=== PATIENT | male | born 1955 | race Caucasian/White ===

== ENCOUNTER 2023-03-18 11:46 | Emergency (ER) | payer MEDICARE, OTHER, SELFPAY ==
[2023-03-18 11:48] VITALS: BP 197/98
--- NOTE | 2023-03-18 12:33 | ED.GENMED ---
History of Present Illness
General
Chief Complaint: Abdominal Pain
Source: patient
Exam Limitations: none
Time Seen by Provider: 03/18/23 12:19
Nursing documentation reviewed up to this point in time: agreed with
Travel History
Have you had any contact with someone who has COVID-19?: No
Do you have any symptoms of coronavirus? Fever > 100 degrees, chills, cough, shortness of breath, sore throat, loss of taste or smell, muscle aches, or headache?: No
History of Present Illness
History of Present Illness:
Patient is 67-year-old male with history hypertension presenting for evaluation of left lower quadrant abdominal pain. Symptoms started on with abdominal pain that has been worsening. He also endorses some episodes of diarrhea and
associated nausea. Pain is worse with movement. He denies any fever, chills, chest pain, shortness of breath, urinary symptoms. No blood in his stool or hematuria.
He was seen in urgent care this morning who recommended he come to emergency department for further evaluation. His blood pressure was elevated in the urgent care. He denies any headache, weakness, numbness, back pain, visual changes. He was
started on lisinopril about a year ago but stopped after about 1 month due to a cough. He was trying to make lifestyle adjustments.
Patient has history of presumed diverticulitis in the past and been treated outpatient with antibiotics. He has not had CT confirmation in the past.
He had an appendectomy over 30 years ago.
Past History
Social History
Tobacco: Non-smoker
Living: with family
Employment: Employed
Family History
Family History: Negative Early CAD or CAD
Phy Exam
Physical Exam
Physical Exam:
General: Well appearing and non-toxic, vital signs reviewed patient afebrile
HEENT: Atraumatic, normocephalic; pupils equal react light bilaterally, extract muscle intact, protecting airway
Neck: appears supple, no jugular venous distention
CV: Regular rate and rhythm, heart sounds normal, no evidence of cyanosis
Resp: No evidence of respiratory stress, lungs clear, no accessory muscle use
Abd: Soft, moderately tender in left lower quadrant without rebound or guarding, non-distended; no CVA tenderness
Extremities: No deformities, no evidence of cyanosis or edema
Neuro: alert and oriented to person place time, speech normal, no focal neurologic deficits, no focal motor
Psych: Normal affect
Skin: Intact, no rashes
Course
Orders/Labs/Results
Orders:
Orders
03/18/23 12:34
0.9% Sodium Chloride 1000 ml [Nss] 1,000 ml IV BOLUS
Ketorolac [Toradol] 15 mg IV NOW STA
03/18/23 12:36
CT Abd/Pel (IV only)-DH only Urgent
Comment: hx appendectomy > 30 yrs ago
Reason For Exam: LLQ abdominal pain
03/18/23 13:27
Complete Blood Count/With Diff Urgent
Comprehensive Metabolic Panel Urgent
Lipase Urgent
03/18/23 13:54
STOOL [C difficile Antigen & Toxins] Urgent
JOHN Source: Feces/Stool
Specimen Description:
Date Specimen was Collected: 03/18/23
Time Specimen was Collected: 13:51
Stool Culture Urgent
OJHN Source: Feces/Stool
Specimen Description:
Date Specimen was Collected: 03/18/23
Time Specimen was Collected: 13:50
Abnormal Lab Results
03/18/23
13:27
RBC 4.35 L 10^6/uL
(4.70-6.10)
MCV 97.0 H fL
(80.0-94.0)
MCH 33.6 H pg
(27.0-31.0)
Absolute Neuts (auto) 7.0 H 10^3/uL
(1.4-6.5)
Absolute Monos (auto) 1.1 H 10^3/uL
(0.1-0.6)
Lymphocytes % 16.1 L %
(20.5-51.1)
Monocytes % 11.5 H %
(1.7-9.3)
Glucose 111 H mg/dl
(70-99)
03/18/23 13:27
03/18/23 13:27
Vital Signs
Initial and Last Documented VS:
Initial Vital Signs
Temp Pulse Resp BP Pulse Ox
98.3 F 69 16 197/98 99
03/18/23 11:48 03/18/23 11:48 03/18/23 11:48 03/18/23 11:48 03/18/23 11:48
Last Documented Vital Signs
Temp Pulse Resp BP Pulse Ox
98.3 F 69 16 170/87 99
03/18/23 11:48 03/18/23 11:48 03/18/23 11:48 03/18/23 14:00 03/18/23 11:48
MDM/Problems Addressed
Differential Diagnosis Includes:
Diverticulitis, colitis, nephrolithiasis, UTI, muscle strain
MDM/Problems Addressed:
Patient is a 67 year old male w/ hx hypertension presenting for evaluation of left sided abdominal pain worsening over the past 2 days. Some associated nausea and intermittent diarrhea. No chest pain, shortness of breath, urinary symptoms. Patient
with hx appendectomy > 30 years ago. He endorse a few presumed diverticulitis flares in past treated with outpatient abx without CT confirmation. Patient well appearing on exam and mild to moderate distress due to pain. His vital signs are stable
other than hypertension�he is afebrile. Physical exam as documented above. He is moderately tender in left lower quadrant without rebound or guarding. No CVA tenderness. Will get basic labs, lipase. Will get CT of abdomen. Will start IV
fluids. Patient declines Toradol at this time. Suspect this is likely a diverticulitis flare. Will reassess
CBC without any clinically significant abnormalities. White count is in normal range. CMP without any clinically significant abnormalities. Lipase is within normal range. Patient's pain remained stable at this time. CT pending.
CT scan shows findings of severe acute diverticulitis with a developing 1.8 cm intramural abscess. There is no evidence for obstruction or perforation. Given patient is very well-appearing, afebrile, with a normal white count�will speak with
colorectal surgeon regarding disposition admission versus outpatient management.
Spoke with Dr. Kamara with colorectal surgery�he recommended offering both admission versus outpatient management patient as abscess is not indication for admission. Lengthy discussion with patient regarding discharge versus admission. He prefers
outpatient management with oral antibiotics. He will follow-up with Dr. Kamara in office and have colonoscopy once resolved. He has remained well-appearing in emergency department and hemodynamically stable. He has remained significantly
hypertensive emergency department�though asymptomatic. He endorses trial of lisinopril about a year ago with primary care provider but developed cough. Given persistent elevation in blood pressure will discharge with 30 supply of losartan. He
will follow with primary care for further management. He is stable for discharge with close return precautions, Augmentin outpatient, follow-up with colorectal. Patient is comfortable with this plan. All questions answered.
Chronic conditions affecting care:
Hypertension, diverticulosis
Acute Exacerbation and/or Progression of Chronic Illness:
Acute diverticulitis, asymptomatic hypertension
*Radiology
Radiology exam reviewed: preliminary read by ED provider and radiology read reviewed
*Pulse Oximetry
Patient hypoxic: no
*Waiter Waitress Interpretation
Rate: normal
Interpretation: normal
Heart Rate: 80
Rhythm: sinus
*Critical Care Note
Total Time (30-74mins, 75-104mins- exclusive of procedures): Not Applicable
ED Attending Note
-
Portions of this chart may have been created with voice recognition software.� Occasional wrong word or��sound alike� substitutions may have occurred due to the inherent limitations of voice recognition software.
Discharge Plan
Departure
Patient Disposition: Home (Routine Discharge)
Date of Disposition: 03/18/23
Time of Disposition: 15:31
Patient with high blood pressure during this ER visit?: Yes
Condition: Good
Covid-19: Not Applicable
Discharge Problem:
Acute diverticulitis, Asymptomatic hypertension
Instructions: Diverticulitis (DC), High Blood Pressure (DC), BLOOD PRESSURE
Prescriptions:
New
amoxicillin-pot clavulanate 875-125 mg tablet
1 tab PO BID 10 Days Qty: 20 0RF
losartan 25 mg tablet
25 mg PO DAILY Qty: 30 0RF
No Action
No Current Medications
Referrals:
Medardo Kamara MD [Active] - Follow up in 1 week
Ismael Schwab MD [Family Provider] - Follow up in 1 week
Activity Restrictions/Additional Instructions:
-Return to the emergency department with any high fevers, severe abdominal pain, intractable vomiting, chest pain, shortness of breath, significant worsening in current symptoms, or any other concerns
-Your prescriptions has been sent to your pharmacy for antibiotic.
-Recommend bland diet and advance as tolerated. You can take Advil as needed for discomfort.
-As discussed, you should schedule follow-up appointment with a colorectal specialist. You will need a colonoscopy once this acute episode is resolved.
-As discussed, your blood pressure was elevated while in the emergency department today. Return to the emergency department for severe headache, weakness, numbness, severe back pain, visual changes, chest pain, or shortness of breath. A
prescription has been sent for losartan for a 1 month supply. You should follow-up with your primary care provider for further evaluation/manage high blood pressure.
Interventions
Interventions:
*Risk Screen - Suicide Last Done: 03/18/23 11:48
*General Assessment Last Done: 03/18/23 11:48
*Neglect/Abuse Screening Last Done: 03/18/23 11:48
*ED COVID-19 Vaccine History Last Done: 03/18/23 13:15
*Nursing Disposition Last Done: 03/18/23 15:57
VV-Avjebj-Dsogxkiuqw Assessment Last Done: 03/18/23 13:15
Discharge Date and Time
Discharge Date/Time: 03/18/23 15:57
[2023-03-18 13:15] VITALS: BMI 31.2
[2023-03-18 13:25] VITALS: BP 175/95
[2023-03-18] MEDS: NSS 1000 IV (13:26)
[2023-03-18 13:37] VITALS: BP 182/102
[2023-03-18 13:37] LABS: % Basophils 0.4 % (0-2); % Eosinophils 1.3 % (0-6); % Immature Granulocytes 0.3 % (0-0.5); % Lymphocytes 16.1 % (20.5-51.1); % Monocytes 11.5 % (1.7-9.3); % Neutrophils 70.4 % (42.2-75.2); Absolute Eosinophils 0.1 10^3/uL (0-0.7); Absolute Lymphocytes 1.6 10^3/uL (1.2-3.4); Absolute Monocytes 1.1 10^3/uL (0.1-0.6); Hematocrit 42.2 % (39.0-52.0); Hemoglobin 14.6 g/dL (13.0-18.0); Mean Corp Hgb Conc. 34.6 g/dL (33.0-37.0); Mean Corpuscular Hgb 33.6 pg (27.0-31.0); Mean Platelet Volume 9.1 fL (7.4-10.4); Nucleated Red Blood Cells % 0 % (-); Platelet Count 229 10^3/uL (130-400); Red Blood Cell Count 4.35 10^6/uL (4.70-6.10); Red Cell Dist. Width 12.1 % (11.5-14.5); White Blood Cell Count 9.9 10^3/uL (4.8-10.8)
[2023-03-18 13:47] LABS: ALT (SGPT) 24 U/L (0-50); AST (SGOT) 26 U/L (17-59); Albumin 4.4 g/dl (3.5-5.0); Alkaline Phosphatase 85 U/L (38-126); Blood Urea Nitrogen 13 mg/dl (9-20); Calcium 9.3 mg/dl (8.4-10.2); Carbon Dioxide 28 mmol/L (22-30); Chloride 104 mmol/L (98-107); Estimated Creatinine Clearance 99 ml/min; Glucose 111 mg/dl (70-99); Lipase 59 U/L (23-300); Potassium 4.3 mmol/L (3.5-5.1); Sodium 137 mmol/L (135-145); Total Bilirubin 1.3 mg/dl (0.2-1.3); Total Protein 7.6 g/dl (6.3-8.2); eGFR > 60.00
[2023-03-18 14:00] VITALS: BP 170/87
== END 2023-03-18 15:57 | disposition home or self-care (01) ==
LOC: EMR 11:46
PROVIDERS: Physician Assistant; EMERGENCY PHYSICIAN Emergency Medicine; FAMILY PHYSICIAN Internal Medicine
DX: K57.20 Diverticulitis of large intestine with perforation and abscess without bleeding (principal); I10 Essential (primary) hypertension
CPT/HCPCS: 99285; 96361; 96360; 74177; 80053; 83690; 85025; 87045; 87046; 87324; 87427; 87449; Q9967

== ENCOUNTER → 2023-05-08 12:40 | Outpatient (REF) | payer MEDICARE, OTHER, SELFPAY ==
[2023-05-08 14:10] LABS: % Basophils 0.8 % (0-2); % Eosinophils 2.4 % (0-6); % Immature Granulocytes 0.5 % (0-0.5); % Lymphocytes 23.8 % (20.5-51.1); % Monocytes 8.6 % (1.7-9.3); % Neutrophils 63.9 % (42.2-75.2); Absolute Basophils 0.1 10^3/uL (0-0.2); Absolute Eosinophils 0.2 10^3/uL (0-0.7); Absolute Lymphocytes 1.6 10^3/uL (1.2-3.4); Absolute Monocytes 0.6 10^3/uL (0.1-0.6); Absolute Neutrophils 4.2 10^3/uL (1.4-6.5); Hematocrit 43.3 % (39.0-52.0); Hemoglobin 14.4 g/dL (13.0-18.0); Mean Corp Hgb Conc. 33.3 g/dL (33.0-37.0); Mean Corpuscular Hgb 33.1 pg (27.0-31.0); Mean Corpuscular Volume 99.5 fL (80.0-94.0); Mean Platelet Volume 10.2 fL (7.4-10.4); Nucleated Red Blood Cells % 0 % (-); Platelet Count 247 10^3/uL (130-400); Red Blood Cell Count 4.35 10^6/uL (4.70-6.10); Red Cell Dist. Width 12.6 % (11.5-14.5); White Blood Cell Count 6.6 10^3/uL (4.8-10.8)
[2023-05-08 15:36] LABS: ALT (SGPT) 32 U/L (0-50); AST (SGOT) 40 U/L (17-59); Albumin 4.7 g/dl (3.5-5.0); Alkaline Phosphatase 92 U/L (38-126); Blood Urea Nitrogen 19 mg/dl (9-20); Calcium 9.8 mg/dl (8.4-10.2); Carbon Dioxide 25 mmol/L (22-30); Chloride 107 mmol/L (98-107); Glucose 98 mg/dl (70-99); HDL Cholesterol 84 mg/dl; LDL Cholesterol, Calculated 149 mg/dl; Potassium 4.7 mmol/L (3.5-5.1); Sodium 139 mmol/L (135-145); Total Bilirubin 0.8 mg/dl (0.2-1.3); Total Cholesterol 244 mg/dl (50-199); Total Protein 7.7 g/dl (6.3-8.2); Triglyceride 57 mg/dl (10-149); Very Low Density Lipoprotein 11 mg/dl (0-30); eGFR > 60.00
== END ==
LOC: REG 12:40
PROVIDERS: ATTENDING PHYSICIAN Internal Medicine
DX: K57.92 Diverticulitis of intestine, part unspecified, without perforation or abscess without bleeding (principal); I10 Essential (primary) hypertension
CPT/HCPCS: 36415; 80053; 80061; 85025

== ENCOUNTER → 2023-05-15 15:27 | Outpatient (REF) | payer MEDICARE, OTHER, SELFPAY | LOC: RAD 15:27 | PROVIDERS: ATTENDING PHYSICIAN Internal Medicine | DX: K57.91 Diverticulosis of intestine, part unspecified, without perforation or abscess with bleeding (principal); I10 Essential (primary) hypertension | CPT/HCPCS: 74177; Q9967 ==

== ENCOUNTER 2023-05-31 15:54 | Emergency (ER) | payer MEDICARE, OTHER, SELFPAY ==
[2023-05-31] VITALS (9 sets, daily range): BP systolic 145–209; BP diastolic 86–106
[2023-05-31 16:17] LABS: % Basophils 0.6 % (0-2); % Immature Granulocytes 0.1 % (0-0.5); % Monocytes 12.3 % (1.7-9.3); Absolute Basophils 0.1 10^3/uL (0-0.2); Absolute Eosinophils 0.2 10^3/uL (0-0.7); Absolute Lymphocytes 1.7 10^3/uL (1.2-3.4); Absolute Monocytes 1.1 10^3/uL (0.1-0.6); Absolute Neutrophils 5.9 10^3/uL (1.4-6.5); Hematocrit 41.7 % (39.0-52.0); Mean Corp Hgb Conc. 33.6 g/dL (33.0-37.0); Mean Corpuscular Volume 98.3 fL (80.0-94.0); Mean Platelet Volume 9.2 fL (7.4-10.4); Nucleated Red Blood Cells % 0 % (-); Platelet Count 246 10^3/uL (130-400); Red Blood Cell Count 4.24 10^6/uL (4.70-6.10); Red Cell Dist. Width 12.5 % (11.5-14.5); White Blood Cell Count 8.9 10^3/uL (4.8-10.8)
[2023-05-31 16:32] LABS: ALT (SGPT) 25 U/L (0-50); AST (SGOT) 31 U/L (17-59); Albumin 4.6 g/dl (3.5-5.0); Alkaline Phosphatase 72 U/L (38-126); Blood Urea Nitrogen 20 mg/dl (9-20); Calcium 9.6 mg/dl (8.4-10.2); Carbon Dioxide 28 mmol/L (22-30); Chloride 104 mmol/L (98-107); Glucose 108 mg/dl (70-99); Potassium 4.5 mmol/L (3.5-5.1); Sodium 136 mmol/L (135-145); Total Protein 7.6 g/dl (6.3-8.2); eGFR > 60.00
[2023-05-31 16:53] LABS: Troponin I < 0.012 ng/ml
--- NOTE | 2023-05-31 17:23 | ED.GENMED ---
History of Present Illness
General
Chief Complaint: Chest Pain
Source: patient
Exam Limitations: none
Time Seen by Provider: 05/31/23 16:59
Travel History
Have you had any contact with someone who has COVID-19?: No
Do you have any symptoms of coronavirus? Fever > 100 degrees, chills, cough, shortness of breath, sore throat, loss of taste or smell, muscle aches, or headache?: No
History of Present Illness
History of Present Illness:
68-year-old male with history of hypertension presents with the onset of chest pain today at 1 PM while sitting at his desk. He describes the pain as a sharp pain when he takes a deep breath. He denies shortness of breath nausea or vomiting. He
has been coughing quite a bit. He denies hemoptysis. No recent travel or surgery. No leg swelling or calf pain. No prior cardiac disease. He denies shortness of breath. He states he went to the [facility] yesterday and today without any difficulty.
Pain does not radiate to his back or neck. No other complaints.
Past History
Social History
Tobacco: Non-smoker
Living: with family
Employment: Employed
Family History
Family History: Negative Early CAD or CAD
Phy Exam
Physical Exam
Physical Exam:
General: Well-appearing male no acute respiratory distress
HEENT: Normocephalic atraumatic
Heart: Regular rate and rhythm no murmur
Lungs: Clear to patient bilaterally no wheezing
Extremities: No cyanosis or edema calves nontender
skin: warm, no rashes.
Scores
Heart Score for Chest Pain Patients
STEMI patient?: No
History: Slightly or Non-Suspicious
ECG: Normal
Age: >/= 65 years
Risk Factors: 1 or 2 Risk Factors
Troponin: </= Normal Limit
Heart Score for Chest Pain Patients: 3
Heart Score Risk: 2.5% MACE over next 6 weeks
Course
Orders/Labs/Results
Orders:
Orders
05/31/23 15:56
Electrocardiogram (*1) Urgent
Reason for Study: Chest Pain
EKG- Treatment ONCE
05/31/23 16:09
CMP [Comprehensive Metabolic Panel] Urgent
Complete Blood Count/With Diff Urgent
Troponin I Urgent
05/31/23 17:23
CT Chest Pe Study Urgent
Comment:
Reason For Exam: chest pain
05/31/23 19:30
Troponin I Urgent
05/31/23 20:58
Troponin I Urgent
Abnormal Lab Results
05/31/23
16:09
RBC 4.24 L 10^6/uL
(4.70-6.10)
MCV 98.3 H fL
(80.0-94.0)
MCH 33.0 H pg
(27.0-31.0)
Absolute Monos (auto) 1.1 H 10^3/uL
(0.1-0.6)
Lymphocytes % 19.0 L %
(20.5-51.1)
Monocytes % 12.3 H %
(1.7-9.3)
Glucose 108 H mg/dl
(70-99)
05/31/23 16:09
05/31/23 16:09
Vital Signs
Initial and Last Documented VS:
Initial Vital Signs
Temp Pulse Resp BP Pulse Ox
99.4 F 68 20 171/95 98
05/31/23 16:00 05/31/23 16:00 05/31/23 16:00 05/31/23 16:00 05/31/23 16:00
Last Documented Vital Signs
Temp Pulse Resp BP Pulse Ox
99.4 F 64 22 180/88 96
05/31/23 16:00 05/31/23 22:30 05/31/23 22:30 05/31/23 22:00 05/31/23 22:30
MDM/Problems Addressed
Differential Diagnosis Includes:
Chest pain. Consider ACS versus PE versus musculoskeletal pain. He is coughing quite a bit. Also considered pneumonia.
Will check labs EKG troponin. Will order PE study
*Critical Care Note
Total Time (30-74mins, 75-104mins- exclusive of procedures): Not Applicable
Update Note
Update Note:
Initial troponin undetectable second troponin increased to a detectable level but still normal at 0.018. Patient reevaluated multiple times states his pain is improving. Discussed findings with emergency room attending as well as cardiology.
Patient has been running high with his blood pressure here. CT of the chest shows no pulmonary embolism but severe calcification of the LAD. After discussion with cardiology they recommended third troponin here in the emergency room which went
back down to undetected. Patient reevaluated again and still pretty much symptom-free. Blood pressure 180s over 80s. Per recommendations from cardiology will advise patient start on a baby aspirin daily as well as 20 mg of Lipitor daily and a
low-dose of amlodipine. Close follow-up to be had with cardiology. Strict return precautions were given. Patient's pain is atypical. This is pleuritic in nature without PE could be chest wall in nature but does have risk factors of elevated
blood pressure.
ED Attending Note
-
Portions of this chart may have been created with voice recognition software.� Occasional wrong word or��sound alike� substitutions may have occurred due to the inherent limitations of voice recognition software.
Discharge Plan
Departure
Patient Disposition: Home (Routine Discharge)
Date of Disposition: 05/31/23
Time of Disposition: 22:38
Patient with high blood pressure during this ER visit?: No
Discharge Problem:
Chest pain
Instructions: Chest Pain DCA Follow Up
Prescriptions:
New
atorvastatin [Lipitor] 20 mg tablet
20 mg PO DAILY Qty: 14 0RF
amlodipine 2.5 mg tablet
2.5 mg PO DAILY Qty: 14 0RF
No Action
No Current Medications
amoxicillin-pot clavulanate 875-125 mg tablet
1 tab PO BID 10 Days Qty: 20 0RF
losartan 25 mg tablet
25 mg PO DAILY Qty: 30 0RF
Referrals:
Ismael Schwab MD [Family Provider] -
Activity Restrictions/Additional Instructions:
Please take 81 mg of aspirin daily. The prescription for Lipitor 20 mg and amlodipine 2.5 mg was called into the pharmacy. Please take as directed. Please return here for any worsening symptoms. Cardiology group should be calling you to set up
an appointment.
Interventions
Interventions:
*Risk Screen - Suicide Last Done: 05/31/23 17:44
*General Assessment Last Done: 05/31/23 17:44
*Neglect/Abuse Screening Last Done: 05/31/23 17:44
ED- Fall Risk Assessment Last Done: 05/31/23 17:44
*ED COVID-19 Vaccine History Last Done: 05/31/23 17:44
ED- Cardiac Assessment Last Done: 05/31/23 17:44
Discharge Date and Time
Print Language: LATVIAN
[2023-05-31 20:11] LABS: Troponin I 0.018 ng/ml
[2023-05-31 21:28] LABS: Troponin I < 0.012 ng/ml
== END 2023-05-31 22:50 | disposition home or self-care (01) ==
LOC: EMR 15:54
PROVIDERS: Emergency Medicine; Physician Assistant; EMERGENCY PHYSICIAN Emergency Medicine; FAMILY PHYSICIAN Internal Medicine
DX: R07.89 Other chest pain (principal); I10 Essential (primary) hypertension; Z79.82 Long term (current) use of aspirin; Z79.899 Other long term (current) drug therapy
CPT/HCPCS: 99284; 71275; 80053; 84484; 85025; 93005; Q9967

== ENCOUNTER → 2023-07-17 08:21 | Outpatient (REF) | payer MEDICARE, OTHER, SELFPAY | LOC: DHCBC/DCA 08:21 | PROVIDERS: ATTENDING PHYSICIAN Internal Medicine Cardiovascular Disease; FAMILY PHYSICIAN Internal Medicine | DX: R07.9 Chest pain, unspecified (principal) | CPT/HCPCS: 78452; 93017; A9500 ==

== ENCOUNTER → 2023-07-31 09:17 | Outpatient (REF) | payer MEDICARE, OTHER, SELFPAY | LOC: RCS 09:17 | PROVIDERS: ATTENDING PHYSICIAN Internal Medicine Cardiovascular Disease; FAMILY PHYSICIAN Internal Medicine | DX: I51.7 Cardiomegaly (principal) | CPT/HCPCS: 93306 ==

== ENCOUNTER → 2023-11-14 13:26 | Outpatient (REF) | payer MEDICARE, OTHER, SELFPAY ==
[2023-11-14 14:36] LABS: Urine Albumin Negative (Neg - Trace); Urine Bilirubin Negative (Negative); Urine Character Clear (Clear); Urine Color Yellow; Urine Glucose Negative (Negative); Urine Ketone Negative (Negative); Urine Leukocyte Negative (Negative); Urine Nitrite Negative (Negative); Urine Occult Blood Negative (Negative); Urine Urobilinogen Negative (Neg - 1+)
[2023-11-14 14:57] LABS: % Basophils 0.4 % (0-2); % Eosinophils 2.8 % (0-6); % Immature Granulocytes 0.3 % (0-0.5); % Lymphocytes 24.4 % (20.5-51.1); % Monocytes 10.1 % (1.7-9.3); Absolute Eosinophils 0.2 10^3/uL (0-0.7); Absolute Lymphocytes 1.6 10^3/uL (1.2-3.4); Absolute Monocytes 0.7 10^3/uL (0.1-0.6); Absolute Neutrophils 4.2 10^3/uL (1.4-6.5); Hematocrit 41.2 % (39.0-52.0); Mean Corpuscular Hgb 33.2 pg (27.0-31.0); Mean Corpuscular Volume 97.6 fL (80.0-94.0); Mean Platelet Volume 9.7 fL (7.4-10.4); Nucleated Red Blood Cells % 0 % (-); Platelet Count 249 10^3/uL (130-400); Red Blood Cell Count 4.22 10^6/uL (4.70-6.10); White Blood Cell Count 6.7 10^3/uL (4.8-10.8)
[2023-11-14 15:14] LABS: ALT (SGPT) 25 U/L (0-50); AST (SGOT) 33 U/L (17-59); Albumin 4.7 g/dl (3.5-5.0); Alkaline Phosphatase 77 U/L (38-126); Blood Urea Nitrogen 19 mg/dl (9-20); Carbon Dioxide 26 mmol/L (22-30); Chloride 103 mmol/L (98-107); Glucose 104 mg/dl (70-99); HDL Cholesterol 87 mg/dl; LDL Cholesterol, Calculated 75 mg/dl; Potassium 5.1 mmol/L (3.5-5.1); Sodium 143 mmol/L (135-145); Total Bilirubin 0.8 mg/dl (0.2-1.3); Total Cholesterol 169 mg/dl (50-199); Total Protein 7.3 g/dl (6.3-8.2); Triglyceride 39 mg/dl (10-149); Very Low Density Lipoprotein 7 mg/dl (0-30); eGFR > 60.00
== END ==
LOC: REG 13:26
PROVIDERS: ATTENDING PHYSICIAN Internal Medicine
DX: I10 Essential (primary) hypertension (principal); E78.5 Hyperlipidemia, unspecified
CPT/HCPCS: 36415; 80053; 80061; 81003; 85025

== ENCOUNTER → 2024-11-13 13:57 | Outpatient (REF) | payer MEDICARE, OTHER, SELFPAY ==
[2024-11-13 14:54] LABS: Urine Character Clear (Clear)
[2024-11-13 15:09] LABS: Hematocrit 42.9 % (39.0-52.0); Hemoglobin 14.5 g/dL (13.0-18.0); Mean Corp Hgb Conc. 33.8 g/dL (33.0-37.0); Mean Corpuscular Volume 98.4 fL (80.0-94.0); Nucleated Red Blood Cells % 0 % (-); Platelet Count 238 10^3/uL (130-400); Red Cell Dist. Width 12.3 % (11.5-14.5)
[2024-11-13 15:21] LABS: Urine Squamous Cell 16-20 /LPF (Few)
[2024-11-13 15:22] LABS: Urine Red Blood Cell 0-2 /HPF (0-2)
[2024-11-13 16:35] LABS: PSA, Total - Screen 2.95 ng/ml (0.0-4.0)
[2024-11-13 18:09] LABS: ALT (SGPT) 29 U/L (0-50); AST (SGOT) 32 U/L (17-59); Albumin 4.9 g/dl (3.5-5.0); Alkaline Phosphatase 78 U/L (38-126); Blood Urea Nitrogen 19 mg/dl (9-20); Calcium 9.7 mg/dl (8.4-10.2); Carbon Dioxide 26 mmol/L (22-30); Chloride 107 mmol/L (98-107); Glucose 95 mg/dl (70-99); HDL Cholesterol 93 mg/dl; LDL Cholesterol, Calculated 82 mg/dl; Potassium 5.2 mmol/L (3.5-5.1); Sodium 141 mmol/L (135-145); Total Protein 7.7 g/dl (6.3-8.2); Very Low Density Lipoprotein 9 mg/dl (0-30); eGFR > 60.00
== END ==
LOC: REG 13:57
PROVIDERS: ATTENDING PHYSICIAN Internal Medicine
DX: I10 Essential (primary) hypertension (principal); E78.00 Pure hypercholesterolemia, unspecified; Z12.5 Encounter for screening for malignant neoplasm of prostate
CPT/HCPCS: 36415; 80053; 80061; 81003; 81015; 85025; G0103